=== PATIENT | female | born 1955 | race Caucasian/White ===

== ENCOUNTER 2018-10-27 21:47 | Emergency (ER) | payer MEDICARE, OTHER ==
[2018-10-27] MEDS ORDERED: Sodium Chloride 0.9% 10 ML Syringe FLUSH PRN (22:23)
[2018-10-27] MEDS ORDERED: Sodium Chloride 0.9% 2.5 ML Syringe FLUSH PRN (22:23)
--- NOTE | 2018-10-27 22:29 | EDM.PDOC ---
ED HPI GENERAL MEDICAL PROBLEM - General Chief Complaint: Back Pain or Injury Stated Complaint: FELL, INJURED BACK. HAS SHOOTING PAIN IN BACK, BTM Time Seen by Provider: 10/27/18 22:13 - History of Present Illness INITIAL COMMENTS - FREE TEXT/NARRATIVE: HISTORY AND PHYSICAL: History of present illness: The patient is a 63-year-old female with a history of A. fib who is on Xarelto and metoprolol as well as chronic pain due to injuries to her back, for which she has a pain pump and takes oral pain meds, and presents stating that she is from [place] where she has her providers and is here visiting and has had 3 falls over the last 2 weeks. The most recent fall occurred this evening and it was witnessed by a friend who said that she just went off to the side quickly and she hit her right wrist which has no pain and landed on her butt and back. She did not hit her head pass out or black out and has no head pain but says that she has pain in her lumbar area and pelvis and it is radiating to her neck. The patient has been eating and drinking normally and says that her equilibrium has been off which she describes as just a slight feeling like she is off and then she falls. She doesn't get dizzy or have any discomfort prior to falling and she has no lightheadedness like she's going to pass out. She has no chest pain shortness of breath nausea vomiting with these symptoms or when they are not occurring. The patient has chronic knee pain but does not have any new extremity complaints. Again she did impact her right wrist but is not having pain there and is otherwise acting appropriately. She is concerned because she has had significant back surgery in the past and she is worried about that and any movement of her legs at her hips causes significant pain in her back. Is me that the pain does not originate in her neck that radiates up from her back The patient has a walker at bedside which she says that she uses at home mostly when she is out and about due to her history of chronic pain knee and back issues . The use of this walker is not new Review of systems: As per history of present illness and below otherwise all systems reviewed and negative. Past medical history: As per history of present illness and as reviewed below otherwise noncontributory. Surgical history: As per history of present illness and as reviewed below otherwise noncontributory. Social history: No reported history of drug or alcohol abuse. Family history: As per history of present illness and as reviewed below otherwise noncontributory. Physical exam: General: Well-developed well-nourished female who is nontoxic and vital signs are noted by me HEENT: Atraumatic, normocephalic, pupils reactive, negative for conjunctival pallor or scleral icterus, mucous membranes moist, throat clear, neck supple, nontender, trachea midline. There is no evidence of any scalp defects or deformities and no facial injuries are appreciated. There are no midline step- offs of the cervical spine but there is diffuse paraspinal tenderness. Lungs: Clear to auscultation, diminished breath sounds in the bases breath sounds equal bilaterally, chest nontender. Heart: S1S2, regular rate and rhythm, no murmur, negative for clicks, rubs, or JVD. Abdomen: Soft, nondistended, nontender. Negative for masses or hepatosplenomegaly. Negative for costovertebral tenderness. Pelvis: Stable nontender. Genitourinary: Deferred. Rectal: Deferred. Extremities: Atraumatic, her chronic arthritic changes of her knees and knuckles of her hands and specifically the right wrist has no defects deformities soft tissue swelling or tenderness, negative for cords or calf pain. Neurovascular unremarkable. Neuro: Awake, alert, oriented. Cranial nerves II through XII unremarkable. Cerebellum unremarkable. Motor and sensory unremarkable throughout. Exam nonfocal. Back: There are no midline step-offs or defects of the thoracic or lumbar spine but there is diffuse lumbar spine discomfort which is not this early in the midline but is bilateral. There is no soft tissue injury such as ecchymosis soft tissue swelling abrasions or defects. Diagnostics: CBC CMP INR troponin TSH UA with reflex EKG chest x-ray pelvis x-ray CT scan of the head neck and lumbar spine The patient declined x-ray of right wrist Therapeutics: IV placement, patient requested something for muscle spasm and due to her allergies we chose to Valium which she is in agreement, Macrobid I've offered the patient admission to the hospital for these falls and further evaluation and she is declining. We will get her up out of bed and I told her that if she cannot get out of bed and ambulate that she would need to take admitted and she absolutely does not want to stay in the hospital. She would like some Valium for home to take over the next few days and she says that she is not allergic to Macrobid and she has received that in the past for UTIs and has done well with it. Patient was helped up and is now ambulating in the ED and continues to want to be discharged home. Impression: Frequent falls, acute on chronic back pain, UTI Definitive disposition and diagnosis as appropriate pending reevaluation and review of above. Back Pain Score (Numeric/FACES): 10 - Related Data Allergies Allergy/AdvReac Type Severity Reaction Status Date / Time adhesive tape Allergy Rash Verified 10/27/18 23:15 amoxicillin Allergy Diarrhea Verified 10/27/18 23:15 ciprofloxacin Allergy Anaphylactic Verified 10/27/18 23:15 Shock codeine Allergy Hives Verified 10/27/18 23:15 esomeprazole Allergy Diarrhea Verified 10/27/18 23:15 levofloxacin Allergy Airway Verified 10/27/18 23:15 Tightness meperidine Allergy Other Verified 10/27/18 23:15 morphine Allergy Nausea and Verified 10/27/18 23:15 Vomiting NSAIDS (Non-Steroidal Allergy Other Verified 10/27/18 23:15 Anti-Inflamma oxycodone Allergy Rash Verified 10/27/18 23:15 prednisone Allergy Diaphoresis Verified 10/27/18 23:15 Sulfa (Sulfonamide Allergy Other Verified 10/27/18 23:15 Antibiotics) Home Meds: Home Meds Cetirizine [ZyrTEC] 10 mg PO DAILY 10/27/18 [History] Cyclobenzaprine [Flexeril] 5 mg PO TID PRN 10/27/18 [History] Dexlansoprazole [Dexilant] 60 mg PO DAILY 10/27/18 [History] Docusate Sodium 100 mg PO DAILY 10/27/18 [History] Ferrous Sulfate 325 mg PO ASDIRECTED 10/27/18 [History] HYDROmorphone [Dilaudid] 2 mg PO ASDIRECTED 10/27/18 [History] Levocetirizine Dihydrochloride [Xyzal] 5 mg PO DAILY 10/27/18 [History] Lidocaine 1 patch TRDERM ASDIRECTED 10/27/18 [History] Lubiprostone [Amitiza] 24 mcg PO DAILY 10/27/18 [History] Mecobalamin [Methylcobalamin] 1,000 mg SL DAILY 10/27/18 [History] fentaNYL Citrate/PF [Fentanyl 100 Mcg/2 ml Syringe] 100 mcg IMPLANT ASDIRECTED 10/27/18 [History] Social & Family History - Tobacco Use Smoking Status *Q: Current Every Day Smoker Years of Tobacco use: 40 Packs/Tins Daily: 1 - Caffeine Use Caffeine Use: Reports: Coffee - Recreational Drug Use Recreational Drug Use: No ED ROS GENERAL - Review of Systems Review Of Systems: ROS reveals no pertinent complaints other than HPI. ED EXAM, GENERAL - Physical Exam Exam: See Below (See dictation) Course - Vital Signs Last Recorded V/S: Last Vital Signs Temp 36.3 C 10/27/18 21:56 Pulse 82 10/27/18 21:56 Resp 22 H 10/27/18 21:56 BP 108/57 L 10/27/18 21:56 Pulse Ox 91 L 10/27/18 21:56 - Orders/Labs/Meds Orders: Active Orders 24 hr Category Date Time Status EKG Documentation Completion [RC] STAT Care 10/27/18 22:23 Active CULTURE URINE [RM] Stat Lab 10/27/18 23:40 Received Sodium Chloride 0.9% [Saline Flush] Med 10/27/18 22:23 Active 10 ml FLUSH ASDIRECTED PRN Sodium Chloride 0.9% [Saline Flush] Med 10/27/18 22:23 Active 2.5 ml FLUSH ASDIRECTED PRN Saline Lock Insert [OM.PC] Stat Oth 10/27/18 22:23 Ordered Medication Orders Sodium Chloride (Saline Flush) 10 ml FLUSH ASDIRECTED PRN PRN Reason: Keep Vein Open Sodium Chloride (Saline Flush) 2.5 ml FLUSH ASDIRECTED PRN PRN Reason: Keep Vein Open Labs: Laboratory Tests 10/27/18 10/27/18 10/27/18 Range/Units 22:39 22:39 22:39 WBC 9.32 (4.0-11.0) K/uL RBC 4.55 (4.30-5.90) M/uL Hgb 13.7 (12.0-16.0) g/dL Hct 40.5 (36.0-46.0) % MCV 89.0 (80.0-98.0) fL MCH 30.1 (27.0-32.0) pg MCHC 33.8 (31.0-37.0) g/dL RDW Std Deviation 46.7 (28.0-62.0) fl RDW Coeff of Ally 15 (11.0-15.0) % Plt Count 235 (150-400) K/uL MPV 9.30 (7.40-12.00) fL Neut % (Auto) 68.2 (48.0-80.0) % Lymph % (Auto) 23.5 (16.0-40.0) % Converse % (Auto) 7.6 (0.0-15.0) % Eos % (Auto) 0.5 (0.0-7.0) % Baso % (Auto) 0.2 (0.0-1.5) % Neut # (Auto) 6.4 H (1.4-5.7) K/uL Lymph # (Auto) 2.2 (0.6-2.4) K/uL Converse # (Auto) 0.7 (0.0-0.8) K/uL Eos # (Auto) 0.1 (0.0-0.7) K/uL Baso # (Auto) 0.0 (0.0-0.1) K/uL Nucleated RBC % 0.0 /100WBC Nucleated RBCs # 0 K/uL INR 0.92 Sodium 141 (136-145) mmol/L Potassium 3.3 L (3.5-5.1) mmol/L Chloride 100 (98-107) mmol/L Carbon Dioxide 32.6 H (21.0-32.0) mmol/L BUN 13 (7.0-18.0) mg/dL Creatinine 0.9 (0.6-1.0) mg/dL Est Cr Clr Drug Dosing 47.03 mL/min Estimated GFR (MDRD) > 60.0 ml/min Glucose 107 H (74-106) mg/dL Calcium 8.6 (8.5-10.1) mg/dL Total Bilirubin 0.2 (0.2-1.0) mg/dL AST 32 (15-37) IU/L ALT 32 (14-63) IU/L Alkaline Phosphatase 96 (46-116) U/L Troponin I < 0.050 (0.000-0.056) ng/mL Total Protein 6.9 (6.4-8.2) g/dL Albumin 3.4 (3.4-5.0) g/dL Globulin 3.5 (2.6-4.0) g/dL Albumin/Globulin Ratio 1.0 (0.9-1.6) TSH 3rd Generation 0.78 (0.36-3.74) uIU/mL Urine Color Urine Appearance Urine pH (5.0-8.0) Ur Specific Vaughn (1.001-1.035) Urine Protein (NEGATIVE) mg/dL Urine Glucose (UA) (NEGATIVE) mg/dL Urine Ketones (NEGATIVE) mg/dL Urine Occult Blood (NEGATIVE) Urine Nitrite (NEGATIVE) Urine Bilirubin (NEGATIVE) Urine Urobilinogen (<2.0) EU/dL Ur Leukocyte Esterase (NEGATIVE) Urine RBC (0-2/HPF) Urine WBC (0-5/HPF) Ur Epithelial Cells (NONE-FEW) Calcium Oxalate Crystal (NEGATIVE) Urine Bacteria (NEGATIVE) Urine Mucus (NONE-MOD) 10/27/18 Range/Units 23:40 WBC (4.0-11.0) K/uL RBC (4.30-5.90) M/uL Hgb (12.0-16.0) g/dL Hct (36.0-46.0) % MCV (80.0-98.0) fL MCH (27.0-32.0) pg MCHC (31.0-37.0) g/dL RDW Std Deviation (28.0-62.0) fl RDW Coeff of Ally (11.0-15.0) % Plt Count (150-400) K/uL MPV (7.40-12.00) fL Neut % (Auto) (48.0-80.0) % Lymph % (Auto) (16.0-40.0) % Converse % (Auto) (0.0-15.0) % Eos % (Auto) (0.0-7.0) % Baso % (Auto) (0.0-1.5) % Neut # (Auto) (1.4-5.7) K/uL Lymph # (Auto) (0.6-2.4) K/uL Converse # (Auto) (0.0-0.8) K/uL Eos # (Auto) (0.0-0.7) K/uL Baso # (Auto) (0.0-0.1) K/uL Nucleated RBC % /100WBC Nucleated RBCs # K/uL INR Sodium (136-145) mmol/L Potassium (3.5-5.1) mmol/L Chloride (98-107) mmol/L Carbon Dioxide (21.0-32.0) mmol/L BUN (7.0-18.0) mg/dL Creatinine (0.6-1.0) mg/dL Est Cr Clr Drug Dosing mL/min Estimated GFR (MDRD) ml/min Glucose (74-106) mg/dL Calcium (8.5-10.1) mg/dL Total Bilirubin (0.2-1.0) mg/dL AST (15-37) IU/L ALT (14-63) IU/L Alkaline Phosphatase (46-116) U/L Troponin I (0.000-0.056) ng/mL Total Protein (6.4-8.2) g/dL Albumin (3.4-5.0) g/dL Globulin (2.6-4.0) g/dL Albumin/Globulin Ratio (0.9-1.6) TSH 3rd Generation (0.36-3.74) uIU/mL Urine Color YELLOW Urine Appearance CLEAR Urine pH 6.0 (5.0-8.0) Ur Specific Vaughn <= 1.005 (1.001-1.035) Urine Protein NEGATIVE (NEGATIVE) mg/dL Urine Glucose (UA) NEGATIVE (NEGATIVE) mg/dL Urine Ketones NEGATIVE (NEGATIVE) mg/dL Urine Occult Blood NEGATIVE (NEGATIVE) Urine Nitrite NEGATIVE (NEGATIVE) Urine Bilirubin NEGATIVE (NEGATIVE) Urine Urobilinogen 0.2 (<2.0) EU/dL Ur Leukocyte Esterase MODERATE H (NEGATIVE) Urine RBC 0-1 (0-2/HPF) Urine WBC 9-13 (0-5/HPF) Ur Epithelial Cells OCCASIONAL (NONE-FEW) Calcium Oxalate Crystal RARE (NEGATIVE) Urine Bacteria FEW (NEGATIVE) Urine Mucus LIGHT (NONE-MOD) Meds: Medications Generic Name Dose Route Start Last Admin Trade Name Freq PRN Reason Stop Dose Admin Sodium Chloride 10 ml 10/27/18 22:23 Saline Flush FLUSH ASDIRECTED PRN Keep Vein Open Sodium Chloride 2.5 ml 10/27/18 22:23 Saline Flush FLUSH ASDIRECTED PRN Keep Vein Open Discontinued Medications Generic Name Dose Route Start Last Admin Trade Name Vicki PRN Reason Stop Dose Admin Diazepam 1 mg 10/28/18 00:28 10/28/18 00:34 Valium IV 10/28/18 00:29 1 mg ONETIME ONE Administration Departure - Departure Time of Disposition: 01:29 Disposition: Home, Self-Care 01 Condition: Good Clinical Impression: Frequent falls, Acute exacerbation of chronic low back pain UTI (urinary tract infection) Qualifiers: Urinary tract infection type: site unspecified Hematuria presence: without hematuria Qualified Code(s): N39.0 - Urinary tract infection, site not specified - Discharge Information Referrals: PCP,None [Primary Care Provider] - Forms: ED Department Discharge Additional Instructions: The following information is given to patients seen in the emergency department who are being discharged to home. This information is to outline your options for follow-up care. We provide all patients seen in our emergency department with a follow-up referral. The need for follow-up, as well as the timing and circumstances, are variable depending upon the specifics of your emergency department visit. If you don't have a primary care physician on staff, we will provide you with a referral. We always advise you to contact your personal physician following an emergency department visit to inform them of the circumstance of the visit and for follow-up with them and/or the need for any referrals to a consulting specialist. The emergency department will also refer you to a specialist when appropriate. This referral assures that you have the opportunity for followup care with a specialist. All of these measure are taken in an effort to provide you with optimal care, which includes your followup. Under all circumstances we always encourage you to contact your private physician who remains a resource for coordinating your care. When calling for followup care, please make the office aware that this follow-up is from your recent emergency room visit. If for any reason you are refused follow-up, please contact the [facility] emergency department at and ask to speak to the emergency department charge nurse. [facility] Primary care- [place] [address] Please take the antibiotics and use the Valium you have been given as needed. Push hydration and rest. Please return to ER as needed and as discussed. Call and schedule a follow-up appointment in the clinic using resources given to above for follow-up care. Continue all home medications - My Orders Last 24 Hours: My Active Orders 10/27/18 22:23 EKG Documentation Completion [RC] STAT Sodium Chloride 0.9% [Saline Flush] 10 ml FLUSH ASDIRECTED PRN Sodium Chloride 0.9% [Saline Flush] 2.5 ml FLUSH ASDIRECTED PRN Saline Lock Insert [OM.PC] Stat 10/27/18 23:40 CULTURE URINE [RM] Stat - Assessment/Plan Last 24 Hours: My Active Orders 10/27/18 22:23 EKG Documentation Completion [RC] STAT Sodium Chloride 0.9% [Saline Flush] 10 ml FLUSH ASDIRECTED PRN Sodium Chloride 0.9% [Saline Flush] 2.5 ml FLUSH ASDIRECTED PRN Saline Lock Insert [OM.PC] Stat 10/27/18 23:40 CULTURE URINE [RM] Stat
[2018-10-27 23:15] LABS: CHLORIDE,CL 100 mmol/L (98-107); SODIUM,NA 141 mmol/L (136-145)
--- NOTE | 2018-10-27 23:48 | CR ---
CHEST 1 VIEW AP INDICATION: Short of breath IMPRESSION: Normal heart size and vascular pattern. No consolidation. Minimal linear scar or platelike atelectasis right lung base. No pneumothorax or pleural abnormality. Dictated by Neeraj Guillermo MD @ Oct 27 2018 11:46PM Signed by Dr. Neeraj Guillermo @ Oct 27 2018 11:46PM
--- NOTE | 2018-10-27 23:51 | CR ---
2 views of the pelvis. INDICATION: Pain. IMPRESSION: Cortical step-off suspect possible right femoral neck fracture very difficult to evaluate given the poor technique. Suggest follow-up with dedicated coned-down radiographs of this region or CT scan. FINDINGS: The views are limited. The bones are demineralized. There is a cortical step-off or subtle irregularity of the right femoral neck. Minimal displacement. Vascular calcifications are present. Symmetric joint space narrowing is present in both hips. The proximal left femur appears intact. Dictated by Neeraj Guillermo MD @ Oct 27 2018 11:48PM Signed by Dr. Neeraj Guillermo @ Oct 27 2018 11:48PM
--- NOTE | 2018-10-28 00:25 | CT ---
INDICATION: Fall, pain. TECHNIQUE: CT head without contrast. COMPARISON: None. FINDINGS: CSF spaces: Within normal limits for age. Brain parenchyma: No intracranial bleed or mass effect. Calcification within the right caudate head which may represent remote inflammatory disease. Lynch-white differentiation is distinct. Skull base and calvarium: Mucosal thickening sphenoid sinus. The visualized orbits are grossly unremarkable. No skull fractures. Atherosclerosis. IMPRESSION: Unremarkable noncontrast head CT. No intracranial bleed or mass effect. Please note that all CT scans at this facility use dose modulation, iterative reconstruction, and/or weight-based dosing when appropriate to reduce radiation dose to as low as reasonably achievable. Dictated by Jossue Cruz MD @ Oct 28 2018 12:16AM Signed by Dr. Jossue Cruz @ Oct 28 2018 12:23AM
[2018-10-28] MEDS ORDERED: diazePAM 5 MG/ML MDV IV ONE (00:28)
--- NOTE | 2018-10-28 00:30 | CR ---
2 views of the pelvis and right hip. INDICATION: Pain. IMPRESSION: Osteopenia. Improved visualization of the proximal right femur since the previous radiograph with technically challenging positioning. Infusion device right lower quadrant. Joint space narrowing. No visualized fracture. Alignments anatomic. Dictated by Neeraj Guillermo MD @ Oct 28 2018 12:27AM Signed by Dr. Neeraj Guillermo @ Oct 28 2018 12:29AM
--- NOTE | 2018-10-28 00:39 | CT ---
INDICATION: Pain after fall TECHNIQUE: CT cervical spine without contrast. COMPARISON: None FINDINGS: Vertebrae: Alignment is normal. There are no fractures or suspicious bony lesions. Discs and facet joints: Facet hypertrophy at C3-4 without significant stenosis. Facet hypertrophy C6-7 without significant stenosis. Facet hypertrophy C7-T1 without significant stenosis. Extraspinal findings: Atherosclerotic calcification. IMPRESSION: Mild degenerative disc disease without evidence of cervical spine fracture. Please note that all CT scans at this facility use dose modulation, iterative reconstruction, and/or weight-based dosing when appropriate to reduce radiation dose to as low as reasonably achievable. Dictated by Jossue Cruz MD @ Oct 28 2018 12:16AM Signed by Dr. Jossue Cruz @ Oct 28 2018 12:36AM
--- NOTE | 2018-10-28 00:45 | CT ---
INDICATION: Pain after fall TECHNIQUE: CT lumbar spine without contrast. COMPARISON: None FINDINGS: Vertebrae: There is an old-appearing burst type fracture of the T11 level without significant retropulsion or bony spinal canal stenosis. The patient is status post posterior fusion at the L3 through L5 level with posterior marvel and pedicle screws without evidence of hardware fracture. Intervertebral spacers are present at the L3-4 and L4-5 level. There is also an old sacral fracture and the patient is status post bilateral sacral kyphoplasty. There is some bowing of the superior and inferior endplates of the L1 vertebral body although this is more consistent with osteoporotic bowing as opposed to a well-defined endplate fracture. No loss of height of the L1 vertebral body. Epidural catheter demonstrated. Discs and facet joints: Minimal annular prominence at L2-3 with facet hypertrophy without significant stenosis. Facet hypertrophy at L5-S1 with mild annular prominence with a least mild to moderate bilateral foraminal stenosis. Extraspinal findings: Prominent atherosclerotic calcification. Inferior vena cava filter noted. IMPRESSION: 1. 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 No clear acute lumbar spine fracture. 2. Status post posterior fusion L3 through L5. Please note that all CT scans at this facility use dose modulation, iterative reconstruction, and/or weight-based dosing when appropriate to reduce radiation dose to as low as reasonably achievable. Dictated by Jossue Cruz MD @ Oct 28 2018 12:16AM Signed by Dr. Jossue Cruz @ Oct 28 2018 12:44AM
[2018-10-28] MEDS ORDERED: Nitrofurantoin Monohydrate/Macrocrystalline 100 MG Cap PO ONE (01:30)
== END 2018-10-28 02:02 | disposition home or self-care (01) ==
LOC: MW.ED 21:47
DX: N39.0 Urinary tract infection, site not specified (principal); M54.5 Low back pain; G89.29 Other chronic pain; R29.6 Repeated falls; I48.91 Unspecified atrial fibrillation; M19.90 Unspecified osteoarthritis, unspecified site; F17.210 Nicotine dependence, cigarettes, uncomplicated; Z79.899 Other long term (current) drug therapy; Z91.09 Other allergy status, other than to drugs and biological substances; Z88.1 Allergy status to other antibiotic agents; Z88.5 Allergy status to narcotic agent; Z88.2 Allergy status to sulfonamides; Z88.8 Allergy status to other drugs, medicaments and biological substances; Z90.49 Acquired absence of other specified parts of digestive tract; Z98.890 Other specified postprocedural states
CPT/HCPCS: 70450; 71045; 72125; 72131; 72170; 73502; 80053; 81001; 84443; 84484; 85025; 85610; 87086; 93005; 96374; 99284; A9270